=== PATIENT | male | born 1985 | race Caucasian/White ===

== ENCOUNTER 2020-04-10 13:08 | Outpatient (REF) | payer OTHER, SELFPAY | END 2020-04-10 13:09 | disposition home or self-care (01) | LOC: HO.LAB 13:08 | PROVIDERS: Visit Provider Internal Medicine | DX: Z20.822 Contact with and (suspected) exposure to COVID-19 (principal) | CPT/HCPCS: 36415; C9803; U0003 ==

== ENCOUNTER 2022-11-28 15:47 | Outpatient (REF) | payer MEDICAID, SELFPAY ==
[2022-11-28 17:31] LABS: MANUAL DIFF FLAG NO
[2022-11-28 17:39] LABS: Basophils Absolute Auto 0.1 X10*3/uL (0.0-0.2); Basophils Percent Auto 0.6 % (0-2); Eosinophils Absolute Auto 0.3 X10*3/uL (0.0-0.4); Eosinophils Percent Auto 3.1 % (0-4); Hematocrit 40.5 % (42.0-52.0); Hemoglobin 14.5 g/dl (14.0-18.0); Imm Gran Abs Auto 0.04 X10*3/uL (0.00-0.03); Imm Gran Pct Auto 0.4 % (0.0-0.4); Lymphocytes Absolute Auto 3.3 X10*3/uL (1.2-4.9); Lymphocytes Percent Auto 34.9 % (20-40); Mean Corpuscular HGB Conc 35.8 g/dl (31.0-36.0); Mean Corpuscular Hemoglobin 30.3 pg (27.0-33.0); Mean Corpuscular Volume 84.7 fL (80.0-98.0); Mean Platelet Volume 10.4 fL (9.4-12.4); Monocytes Absolute Auto 0.6 X10*3/uL (0.1-1.2); Monocytes Percent Auto 6.2 % (2-11); Neutrophils Absolute Auto 5.1 x10*3/uL (2.0-8.3); Neutrophils Percent Auto 54.8 % (45-73); Platelet Count 226 X10*3/uL (160-400); Red Blood Count 4.78 X10*6/uL (4.60-5.80); Red Cell Distribution Width 12.4 % (11.0-16.0); White Blood Count 9.3 X10*3/uL (4.8-10.8)
[2022-11-28 17:56] LABS: Alanine Aminotransferase 41 U/L (0-40); Albumin Level 4.6 g/dL (3.5-5.0); Alkaline Phosphatase 68 U/L (39-117); Anion Gap 13 (12-20); Aspartate Amino Transferase 37 U/L (5-37); Bilirubin Total 0.5 mg/dL (0.0-1.0); Blood Urea Nitrogen 13 mg/dL (9-16); Calcium 9.9 mg/dL (8.4-10.2); Carbon Dioxide 26 mmol/L (22-29); Chloride 105 mmol/L (96-108); Estimated Glomerular Filt Rate > 60; Glucose Random 95 mg/dL (60-115); Potassium 3.9 mmol/L (3.3-5.1); Sodium 140 mmol/L (135-145); Total Protein 7.7 g/dL (6.5-8.0)
[2022-11-28 18:13] LABS: TSH reflex Free T4 3.38 uIU/mL (0.32-4.0)
[2022-11-28 18:28] LABS: Vitamin B12 249 pg/mL (200-900)
[2022-11-29 09:26] LABS: Syphilis Screen Nonreactive (Nonreactive)
[2022-11-29 09:34] LABS: HIV AB/AG Nonreactive (Nonreactive); HIV Num 1 0.05 S/CO (0.00-0.99)
== END 2022-11-28 15:48 | disposition home or self-care (01) ==
LOC: HO.HHCL 15:47
PROVIDERS: Visit Provider General Practice
DX: R00.2 Palpitations (principal); G62.9 Polyneuropathy, unspecified
CPT/HCPCS: 36415; 80053; 82607; 82746; 84443; 85025; 86780; 87389

== ENCOUNTER 2024-10-28 06:58 | Emergency (ER) | payer OTHER, SELFPAY ==
--- NOTE | ~2024-10-28 | XR_ITS ---
EXAMINATION: XR CHEST 2 VIEWS HISTORY: R rib pain COMPARISON: Comparison is made with the prior examination dated 09/22/2007. FINDINGS: PA and lateral views of the chest are submitted. The lungs are expanded and clear. There is no pleural effusion, pneumothorax, or pulmonary vascular congestion. The heart is normal in size. The bones are intact. XR/XR chest 2V IMPRESSION: No acute cardiopulmonary abnormality. Electronically signed by: Claudy German MD 10/28/2024 08:03 AM EDT
--- NOTE | ~2024-10-28 | US_ITS ---
EXAMINATION: US ABDOMEN LIMITED HISTORY: RUQ pain TECHNIQUE: Real-time grayscale ultrasound imaging of the gallbladder was performed and images were reviewed. COMPARISON: There are no prior studies available for comparison. FINDINGS: The gallbladder is unremarkable without evidence of stones, wall thickening, or pericholecystic fluid. There is no sonographic Dumont sign. The common bile duct is normal in caliber measuring 2 mm in diameter. US/US abdomen limited IMPRESSION: Unremarkable ultrasound of the gallbladder. Electronically signed by: Claudy German MD 10/28/2024 08:55 AM EDT
--- NOTE | ~2024-10-28 | CT_ITS ---
EXAMINATION: CT ABDOMEN PELVIS WITHOUT IV CONTRAST HISTORY: RUQ pain COMPARISON: There are no prior studies available for comparison. TECHNIQUE: CT scan of the abdomen and pelvis was performed without contrast using standard departmental protocol. Coronal and sagittal reformatted images were generated and reviewed. Oral contrast material was not administered at the request of the referring physician. This CT exam was performed with one or more of the following dose reduction techniques: automated exposure control, adjustment of the mA and/or kV according to patient size, use of iterative reconstruction technique. DLP: 547 mGy-cm FINDINGS: LOWER CHEST: The visualized lung bases are clear. There is no pleural effusion. CARDIOVASCULATURE: The heart is normal in size. There is no pericardial effusion. LIVER: The liver is normal in size and contour. The liver has an unremarkable unenhanced appearance. GALLBLADDER / BILE DUCTS: The gallbladder is unremarkable. There is no intra or extrahepatic biliary ductal dilatation. SPLEEN: The spleen is normal in size and has an unremarkable unenhanced appearance. PANCREAS: The pancreas has an unremarkable unenhanced appearance. ADRENAL GLANDS: Unremarkable. KIDNEYS/RETROPERITONEUM: No renal calculi are identified. There is no hydronephrosis. LYMPH NODES: No retroperitoneal lymphadenopathy is identified in the abdomen or pelvis. VASCULATURE: The abdominal aorta is normal in caliber. MESENTERY/PERITONEUM: No free fluid. No masses. There is no free intraperitoneal gas. STOMACH: There is mild wall thickening of the distal esophagus. The stomach is unremarkable. SMALL BOWEL: The small bowel is normal in caliber. COLON: There is diverticulosis of the descending and sigmoid colon, without evidence of diverticulitis. APPENDIX: Normal. URINARY BLADDER/PELVIC ORGANS: The urinary bladder is collapsed, limiting evaluation. The prostate is normal in size. BONES / SOFT TISSUES: No suspicious bony or soft tissue abnormalities. CT/CT abdomen pelvis wo IV con IMPRESSION: 1. Mild wall thickening of the distal esophagus could represent esophagitis. Clinical correlation is recommended. 2. Diverticulosis of the descending and sigmoid colon, without evidence of diverticulitis. Electronically signed by: Claudy German MD 10/28/2024 11:13 AM EDT
[2024-10-28 07:24] VITALS: BP 123/83; PULSE 79; RESP 16; TEMP 36.6; O2SAT 100; BMI 33.3
--- NOTE | 2024-10-28 07:32 | ED.GENADULT ---
HPI - General Adult General Chief complaint: Abdominal Pain Stated complaint: r side pain Time Seen by Provider: 10/28/24 08:02 Source: patient Mode of arrival: ambulatory Limitations: no limitations History of Present Illness ED Provider: MICKI Martinez HPI narrative: This is a 39-year-old male with history of obesity presenting to the emergency department with concerns of right upper quadrant pain x1 day. Patient reports he awoke this morning with right upper quadrant pain, he reports this pain is a ?spasm pain ?. Reports pain is constant in nature and fluctuates in intensity. He has never had pain like this before. He does however tell me that about a week ago he had pain in his epigastric region it lasted a few hours and then went away however he has never had pain in his right upper quadrant. He reports he used to be a frequent drinker however now he does not drink. No history of hepatitis. Denies nausea, vomiting, fevers, chills, chest pain, shortness breath, sick contacts, changes in urinary or bowel habits. Related Data Previous Rx's ?Medication ?Instructions ?Recorded ketorolac 10 mg tablet 10 mg PO TID PRN pain 5 days #15 10/28/24 tabs Allergies Allergy/AdvReac Type Severity Reaction Status Date / Time No Known Allergies Allergy Verified 10/28/24 07:25 Review of Systems Review of Systems: Yes all other systems are reviewed and are negative PMFSH Past Medical History Attestation statement: The following information was validated with the patient. Source: old records reviewed and nursing notes reviewed Social History Social History Advance Directives: No Advance Directives Information Provided: Yes Physical Exam ED Exam Exam: Appearance: Alert.? Oriented X3.? No acute distress.? Head: Normocephalic, atraumatic, no step-offs or deformities Eyes: Pupils equal, round and reactive to light.? ENT: Pharynx normal.? Neck: Normal inspection.? Neck supple.? CVS: Normal heart rate and rhythm.? Pulses normal.? Respiratory: No respiratory distress.? Breath sounds normal.? Abdomen: Soft and + right upper quadrant tenderness to palpation. Negative Dumont's. Negative Rovsing, McBurney's, psoas and obturator.? Skin: Skin warm and dry.? Normal skin color.? Normal skin turgor.? Extremities: No lower extremity edema.? No calf ttp. 5/5 strength to bilateral upper and lower extremities Back: No midline tenderness, no C-spine tenderness, full range of motion, no CVA tenderness bilaterally Neuro: Oriented X 3.? No motor deficit.? No sensory deficit. CN 2-12 intact Vital Signs: Vital Signs - 24 hr 10/28/24 07:24 Temperature 98 F Pulse Rate 79 Respiratory Rate 16 Blood Pressure 123/83 Pulse Oximetry 100 Oxygen Delivery Method Room Air BMI result Body Mass Index 33.3 Course Course Course Narrative: 39 yo male with no PMH here with c/o 1 week epigastric pain that this AM moved to his R ribs and RUQ he has no associated GI or symptoms. He has never had anything like this before. He denies recent travel, URI, procedures. He is PERC negative, it is localized and reproduceable to R lower ant ribs and RUQ at this time will obtain labs, CXR, US of GB only. this is a RAPID medical screening exam the rest of the history and physical exam is to be done by the main provider. NNEKA 10/28/24 734am Reevaluation(s) Reevaluation #1: CBC unremarkable. Chemistry no acute findings eating intervention. Transaminases within normal range. Lipase normal. Chest x-ray no acute cardiopulmonary abnormalities. Ultrasound in urine pending. Time: 08:45 Reevaluation #2: Upon re-evaluation patient is still reports discomfort in the right upper quadrant. He reports they are spasming and he is quite uncomfortable. Toradol did not seem to help much. is not asking for anything else for pain at this moment. Will proceed with obtaining a CAT scan of CT abdomen pelvis right upper quadrant. Will ensure that this is not kidney stone although less likely however patient still uncomfortable without a clear etiology. Time: 09:50 Reevaluation #3: UA unremarkable. X-ray unremarkable.ultrasound unremarkable. CT abdomen and pelvis with mild wall thickening of the distal esophagus which could represent esophagitis history and physical exam do not seem to correlate with this finding. Diverticulosis of descending and sigmoid colon without evidence of diverticulitis. Will discharge patient on NSAIDs and have him follow-up with GI. Patient reports this pain is tolerable. Will also have him follow up with PCP. Advised to return with any new or worsening symptoms. Educated patient on diagnosis and treatment plan, answered all question, patient verbalizes understanding. At this time patient will be discharged home, advised to return with new or worsening symptoms. Educated on worrisome signs and symptoms and when to return. At this time I feel comfortable discharge home. Time: 11:55 Medications Administered Discontinued Medications Generic Name Dose Route Start Last Admin Trade Name Vivian PRN Reason Stop Dose Admin Ketorolac Tromethamine 15 mg 10/28/24 08:15 10/28/24 08:51 Ketorolac Tromethamine 15 Mg/Ml Vial IM 10/28/24 08:16 15 mg ONCE ONE Administration Medical Decision Making Medical Decision Making [facility] Narrative: 0817 39-year-old male presents with right upper quadrant pain since this morning. Pain is constant, reports spasming pain. Denies fevers, chills, nausea, vomiting and changes in bowel habits. Physical exam with tenderness to palpation to right upper quadrant. Negative specialty test. History and physical exam concerning for possible colic versus viral illness. Will rule out cholecystitis. Unlikely cholangitis, appendicitis, acute abdomen, choledocholithiasis, UTI. I do not suspect ACS or PE (perc negative) on this patient. Plan labs, imaging, urine. Differential Diagnosis Differential Diagnoses: The differential diagnosis associated with the presentation includes (History and physical exam concerning for possible colic versus viral illness. Will rule out cholecystitis. Unlikely cholangitis, appendicitis, acute abdomen, choledocholithiasis, UTI. Plan labs, imaging, urine.) Admission/Observation Consideration of admission/observation: Escalation of care including admission/observation considered Lab Data [facility] Lab Attestation statement: I reviewed the patient's lab results. 10/28/24 07:33 10/28/24 07:33 Labs: Lab Results 10/28/24 10/28/24 Range/Units 07:33 08:31 WBC 6.5 (4.8-10.8) X10*3/uL RBC 4.82 (4.60-5.80) X10*6/uL Hgb 14.9 (14.0-18.0) g/dl Hct 40.7 L (42.0-52.0) % MCV 84.4 (80.0-98.0) fL MCH 30.9 (27.0-33.0) pg MCHC 36.6 H (31.0-36.0) g/dl RDW 12.4 (11.0-16.0) % Plt Count 179 (160-400) X10*3/uL MPV 10.4 (9.4-12.4) fL Immature Gran % (Auto) 0.3 (0.0-0.4) % Neut % (Auto) 56.5 (45-73) % Lymph % (Auto) 34.5 (20-40) % [place] % (Auto) 6.2 (2-11) % Eos % (Auto) 1.9 (0-4) % Baso % (Auto) 0.6 (0-2) % Lymph # (Auto) 2.2 (1.2-4.9) X10*3/uL [place] # (Auto) 0.4 (0.1-1.2) X10*3/uL Eos # (Auto) 0.1 (0.0-0.4) X10*3/uL Baso # (Auto) 0.0 (0.0-0.2) X10*3/uL Abs Immat Gran (auto) 0.02 (0.00-0.03) X10*3/uL Absolute Neuts (auto) 3.7 (2.0-8.3) x10*3/uL Absolute Nucleated RBC 0.000 (0.0-0.012) X10*3/uL Nucleated RBC % (auto) 0.0 (0.0-0.2) /100WBC Sodium 137 (135-145) mmol/L Potassium 4.5 (3.3-5.1) mmol/L Chloride 104 (96-108) mmol/L Carbon Dioxide 24 (22-29) mmol/L Anion Gap 14 (12-20) BUN 11 (9-16) mg/dL Creatinine 1.05 (0.5-1.4) mg/dL Estim Creat Clear Calc 99.7 Estimated GFR > 60 Random Glucose 126 H (60-115) mg/dL Calcium 9.0 D (8.4-10.2) mg/dL Total Bilirubin 0.5 (0.0-1.0) mg/dL Direct Bilirubin < 0.1 (0.0-0.5) mg/dL AST 37 (5-37) U/L ALT 49 H (0-40) U/L Alkaline Phosphatase 71 (39-117) U/L Total Protein 7.7 (6.5-8.0) g/dL Albumin 4.7 (3.5-5.0) g/dL Lipase 21 (8-78) U/L Urine Color Yellow Urine Appearance Clear Urine pH 5.5 (5.0-9.0) Ur Specific Sutter 1.015 (1.005-1.025) Urine Protein Negative (Neg-Trace) mg/dL Urine Glucose (UA) Negative (Negative) mg/dL Urine Ketones Negative (Negative) mg/dL Urine Blood Negative (Negative) Urine Nitrite Negative (Negative) Ur Leukocyte Esterase Negative (Negative) Radiology Impression Discussion of test interpretation with radiology: I have reviewed the radiologist's reading. External Record Review External record reviewed: Inpatient record, Office record, Outpatient record, Prior outpatient labs, Prior outpatient radiology, Primary care record and Outside ED record Prescription Management I considered prescription management with: Pain Medication (IM toradol ) Chronic Conditions Patient?s care impacted by: Other (Obesity) Critical Care Time Critical Care Time Critical Care Time: Yes Total Critical Care Time: 35 Attestation: I attest to this time spent taking care of the patient, obtaining history, physical, reviewing labs, imaging, treatment of patients condition +/- specialist/hospitalist consult +/- procedure Discharge Plan Discharge Clinical Impression: Abdominal pain, Abdominal pain, RUQ Patient Disposition: Home, Self-Care Instructions: Abdominal Pain (ED) Additional Instructions: Take your medications as prescribed. If you were prescribed antibiotics today, it is important that you take your medication to their entirety, do not skip any doses, do not finish them early. Follow-up with your primary care provider this week. Return to the emergency department with new or worsening symptoms. Such as fevers, chills, chest pain, shortness of breath, nausea, vomiting, dizziness, headache, vision changes, lethargy In case of emergency call 911 CT/CT abdomen pelvis wo IV con IMPRESSION: 1. Mild wall thickening of the distal esophagus could represent esophagitis. Clinical correlation is recommended. 2. Diverticulosis of the descending and sigmoid colon, without evidence of diverticulitis. US/US abdomen limited IMPRESSION: Unremarkable ultrasound of the gallbladder. US/US abdomen limited IMPRESSION: Unremarkable ultrasound of the gallbladder. Prescriptions: New ketorolac 10 mg tablet 10 mg PO TID PRN (Reason: pain) 5 Days Qty: 15 0RF Rx Instructions: Tolerated IM or IV in department Referrals: [facility] [place] Gastroenterology Services [Provider Group, Gastroenterology] - 2 weeks Stand Alone Forms: Work/School Release Print Language: Mohawk
[2024-10-28 07:37] LABS: MANUAL DIFF FLAG NO
[2024-10-28 07:39] LABS: Hematocrit 40.7 % (42.0-52.0); Hemoglobin 14.9 g/dl (14.0-18.0); Imm Gran Abs Auto 0.02 X10*3/uL (0.00-0.03); Imm Gran Pct Auto 0.3 % (0.0-0.4); Lymphocytes Absolute Auto 2.2 X10*3/uL (1.2-4.9); Mean Corpuscular HGB Conc 36.6 g/dl (31.0-36.0); Mean Corpuscular Hemoglobin 30.9 pg (27.0-33.0); Mean Corpuscular Volume 84.4 fL (80.0-98.0); NRBC Abs Auto 0.000 X10*3/uL (0.0-0.012); NRBC Pct Auto 0.0 /100WBC (0.0-0.2); Platelet Count 179 X10*3/uL (160-400); Red Blood Count 4.82 X10*6/uL (4.60-5.80); White Blood Count 6.5 X10*3/uL (4.8-10.8)
[2024-10-28 07:59] LABS: Albumin Level 4.7 g/dL (3.5-5.0); Alkaline Phosphatase 71 U/L (39-117); Anion Gap 14 (12-20); Aspartate Amino Transferase 37 U/L (5-37); Blood Urea Nitrogen 11 mg/dL (9-16); Calcium 9.0 mg/dL (8.4-10.2); Carbon Dioxide 24 mmol/L (22-29); Chloride 104 mmol/L (96-108); Creatinine Clr Calc Pharmacy 99.7; Estimated Glomerular Filt Rate > 60; Lipase 21 U/L (8-78); Potassium 4.5 mmol/L (3.3-5.1); Sodium 137 mmol/L (135-145); Total Protein 7.7 g/dL (6.5-8.0)
--- OUTSIDE RECORDS SUMMARY | 2024-10-28 08:03 | XMS_ITS | Clinical Summary ---
Author Organization [facility] Address [address] [place] [address] Phone Care Team Providers Care Electro Tech Name Role Phone Physician, No Pcp Primary Care Provider Unavaila ble Allergies No known active allergies Medications No known medications Medical History Medical History Date Comments Asthma Social History Tobacco Use Types Packs/Day Years Used Date Smoking Tobacco: Never Smokeless Tobacco: Never Sex and Gender Information Value Date Recorded Sex Assigned at Not on file Legal Sex Male 3:58 AM EST Gender Identity Not on file Sexual Orientation Not on file Obstetrics History Last Filed Vital Signs Vital Sign Reading Time Taken Comments Blood Pressure 108/61 02/13/2024 1:06 PM EST Pulse 74 02/13/2024 1:06 PM EST Temperature 36.6 C (97.9 F) 02/13/2024 1:06 PM EST Respiratory Rate 16 02/13/2024 1:06 PM EST Oxygen Saturation 97% 02/13/2024 1:06 PM EST Inhaled Oxygen Concentration - - Weight 90.7 kg (200 lb) 02/13/2024 1:07 PM EST Height 165.1 cm (5' 5 ) 02/13/2024 1:07 PM EST Body Mass Index 33.28 02/13/2024 1:07 PM EST Plan of Treatment Health Maintenance Due Date Last Done Comments Pneumococcal Vaccine: Pediatrics (0 to 5 Years) and At-Risk Patients (6 to 49 Years) (1 of 2 - PCV) 09/09/2006 DTaP,Tdap,and Td Vaccines (7 - Td or Tdap) 12/23/2009 12/24/1999, 04/22/1998, 02/19/1998, Additional history exists Cholesterol Screening (Lipid Panel) 02/23/2022 HIV Screening 02/23/2022 Hepatitis C Screening 02/23/2022 Social Influencers of Health Screening 02/23/2022 COVID-19 Vaccine (2 - 2023- season) 2023 06/25/2020 Depression Screening 03/23/2024 Influenza Vaccine (#1) 2024 , 02/04/2001, 12/24/1999, Additional history exists HIB Vaccines Completed 10/20/1989 IPV Vaccines Completed 04/22/1998, 01/23, 11/20/1997, Additional history exists MMR Vaccines Completed 12/25/1998, 02/20/1992 Hepatitis B Vaccines Completed 08/03/2000, 01/27/2000, 12/24/1999 HPV Vaccines Aged Out No longer eligi ble based on patient's age to complete this topic Hepatitis A Vaccines Aged Out No long er eligible based on patient's age to complete this topic Meningococcal ACWY Vaccine Aged Out N o longer eligible based on patient's age to complete this topic Meningococcal B Vaccine Aged Out No l onger eligible based on patient's age to complete this topic RSV Immunization Patients Under 20 months Aged Out No longer eligible based on patient's age to complete this topic Varicella Vaccines Aged Out No longer eligible based on patient's age to complete this topic Insurance [facility] Care Teams Electro Tech Relationship Specialty Start Date End Date Physician, No Pcp PCP - General 02/13/24
--- OUTSIDE RECORDS SUMMARY | 2024-10-28 08:03 | XMS_ITS | Clinical Summary ---
Author Organization [facility] Address [address] [place] [id number] Phone Care Team Providers Care Rand Cementer Name Role Phone Unavailable Primary Care Provider Unavailabl e Immunizations Immunization Administration Dates Next Due DTP 04/22/1998, 8,11/20/1997,1991,01/26/1989 Hep B, ped/adol 08/03/2000,01/27/2000,12/24/1999 Hib (PRP-T) 10/20/1989 IPV 04/22/1998, 8,11/20/1997,1991 Influenza Split 02/04/2001,12/24/1999,12/25/1998 Influenza, injectable, trivalent 003,02/04/2001,12/24/1999,1998 MMR 12/25/1998,02/20/1992 OPV 01/26/1989 Td (adult) (MBL), 2 Lf tetan us toxoid, PF, adsorbed 12/24/1999 Family History Relation Name Status Comments Brother Alive Brother: Alive and well Father Alive Father: Alive a nd well Mother Alive Mother: Alive a nd well Other Family history of Strabismus/amblyopia, Family history of ADD/ADHD, Family history of Asthma, Family history of Diabetes mellitus, Family history of Autism, Family history of Elevated cholesterol Sister Alive Sister: Asthma, Alive and well Social History Tobacco Use Types Packs/Day Years Used Date Smoking Tobacco: Never Assessed Sex and Gender Information Value Date Recorded Sex Assigned at Not on file Legal Sex Male 4:11 PM EDT Gender Identity Not on file Sexual Orientation Not on file Plan of Treatment Health Maintenance Due Date Last Done Comments Varicella Vaccines (1 of 2 - 13+ 2-dose series) 09/09/2000 DTaP,Tdap,and Td Vaccines (7 - Tdap) 12/23/2009 12/24/1999, 04/22/1998, 02/19/1998, Additional history exists COVID-19 Vaccine ( season) 2023 Influenza Vaccines (#1) 2024 02/23/20, 02/04/2001, 02/04/2001, Additional history exists HIB Vaccines Completed 10/20/1989 IPV Vaccines Completed 04/22/1998, 01/23, 11/20/1997, Additional history exists MMR Vaccines Completed 12/25/1998, 02/20/1992 Hepatitis B Vaccines Completed 08/03/2000, 01/27/2000, 12/24/1999 HPV Vaccines Aged Out No longer eligi ble based on patient's age to complete this topic Hepatitis A Vaccines Aged Out No long er eligible based on patient's age to complete this topic Men B Vaccine Aged Out No longer elig ible based on patient's age to complete this topic Meningococcal Vaccine Aged Out No marie julienne eligible based on patient's age to complete this topic Pneumococcal Vaccine Aged Out No long er eligible based on patient's age to complete this topic
--- OUTSIDE RECORDS SUMMARY | 2024-10-28 08:03 | XMS_ITS | Encounter Summary ---
Author Organization [employer] Address [address] [place] [address] [address] [place] [address] Care Team Providers Care Restaurant Crew Name Role Phone Ainsley Price MD Primary Care Provider [phone] Encounter Details Date Type Department Care Team (Late st Contact Info) Description 12/10/2022 Orders Only [facility] [address], [place] [phone] Ainsley Price MD [address], [place] [phone] Neuropathy (Primary Dx) Social History Tobacco Use Types Packs/Day Years Used Date Smoking Tobacco: Never Smokeless Tobacco: Never Alcohol Use Standard Drinks/Week Comments Never 0 (1 standard drink = 0.6 oz pur e alcohol) Sex and Gender Information Value Date Recorded Sex Assigned at Male 01/20/2022 10:21 AM EDT Legal Sex Male 10:21 AM EDT Gender Identity Male 01/20/2022 10:21 AM EDT Sexual Orientation Straight 11/28/2022 5: 07 PM EDT documented as of this encounter Plan of Treatment Not on file documented as of this encounter Visit Diagnoses Diagnosis Neuropathy- Primary Mononeuritis of unspecified site documented in this encounter Care Teams Restaurant Crew Relationship Specialty Start Date End Date Ainsley Price MD [address] [place] [address] PCP - General Family Medicine 08/05/20 documented as of this encounter
--- OUTSIDE RECORDS SUMMARY | 2024-10-28 08:03 | XMS_ITS | Clinical Summary ---
Author Organization [facility] Address [address] [place] [address] Care Team Providers Care Screener And Blender Operator Name Role Phone Unavailable Primary Care Provider Unavailabl e Source Comments PLEASE NOTE, if this patient is a minor, it may be UNLAWFUL to discuss sensitive information that is contained in these records (such as FAMILY PLANNING, MENTAL HEALTH or SUBSTANCE ABUSE) with the minor patient's parent or other person without the patient's specific authorization.[facility] Immunizations Immunization Administration Dates Next Due Moderna COVID-19 Vaccine, re d cap blue label, 12+ Primary Series 07/24/2020,06/25/2020 Social History Tobacco Use Types Packs/Day Years Used Date Smoking Tobacco: Never Assessed Social Connections Answer Date Recorded Social Connections and Isolation 0 06/25/2020 Financial Resource Strain Answer Date R ecorded Financial Resource Strain 0 2020 Stress Answer Date Recorded Stress 0 06/25/2020 Physical Activity Answer Date Recorded Physical Activity 0 06/25/2020 Food Insecurity Answer Date Recorded Food 0 06/25/2020 Transportation Needs Answer Date Record ed Transportation 0 06/25/2020 Housing Stability Answer Date Recorded Housing 0 06/25/2020 Safety and Environment Answer Date Jac rded Safety 0 06/25/2020 Utilities Answer Date Recorded Utilities 0 06/25/2020 Employment Answer Date Recorded Employment 0 06/25/2020 Sex and Gender Information Value Date Recorded Sex Assigned at Not on file Legal Sex Male 1:14 PM PDT Gender Identity Not on file Sexual Orientation Not on file Plan of Treatment Health Maintenance Due Date Last Done Comments Anxiety Screening 1987 Diabetes Screening 1987 Hepatitis C Screening 1987 Tobacco Screening 1987 HIV Screening 09/09/2002 Hypertension Screening (#1) 09/09/2005 Imm-DTaP/Tdap/Td (1 - Tdap) 09/09/2006 Imm-Hepatitis B (1 of 3 - 19 + 3-dose series) 09/09/2006 [id number] ( season) 2023 021, 06/25/2020 Alcohol and Drug Screen 03/23/2024 Depression Annual Screen 03/23/2024 Imm-Influenza (#1) [address] [employer]
[2024-10-28 08:40] LABS: Appearance Urine Clear; Glucose Urine UA Negative (Negative); PH 5.5 (5.0-9.0); Specific Gravity - Urine 1.015 (1.005-1.025)
[2024-10-28 08:49] LABS: Alanine Aminotransferase 49 U/L (0-40)
[2024-10-28 12:13] VITALS: BP 123/79; PULSE 68; RESP 16; TEMP 36.8; O2SAT 98
== END 2024-10-28 12:14 | disposition home or self-care (01) ==
PROVIDERS: Physician Assistant; Emergency Provider Emergency Medicine Emergency Medical Services
DX: R10.11 Right upper quadrant pain (principal); R07.81 Pleurodynia
CPT/HCPCS: 36415; 71046; 74176; 76705; 80048; 80076; 81003; 83690; 85025; 96372; 99283; 99284; J1885

== ENCOUNTER → 2024-10-28 07:29 | Outpatient (BNV) | payer OTHER, SELFPAY | PROVIDERS: Emergency Provider Emergency Medicine Emergency Medical Services; Visit Provider Radiology Diagnostic Radiology | DX: K57.30 Diverticulosis of large intestine without perforation or abscess without bleeding (principal); R10.11 Right upper quadrant pain; R07.89 Other chest pain | CPT/HCPCS: 71046; 74176; 76705 ==